=== PATIENT | female | born 1945 | race Caucasian/White ===

== ENCOUNTER → 2017-02-14 | Outpatient (CLI) | payer MEDICARE | LOC: MC.RAD 08:56 | DX: Z12.31 Encounter for screening mammogram for malignant neoplasm of breast (principal) ==

== ENCOUNTER → 2018-04-10 | Outpatient (CLI) | payer MEDICARE | LOC: MC.RAD 08:40 | DX: Z12.31 Encounter for screening mammogram for malignant neoplasm of breast (principal) ==

== ENCOUNTER → 2019-05-04 | Outpatient (CLI) | payer MEDICARE | LOC: MC.RAD 07:28 | DX: Z12.31 Encounter for screening mammogram for malignant neoplasm of breast (principal) ==

== ENCOUNTER → 2020-05-06 | Outpatient (CLI) | payer MEDICARE | LOC: MC.RAD 08:30 | DX: Z12.31 Encounter for screening mammogram for malignant neoplasm of breast (principal) ==

== ENCOUNTER → 2021-06-13 | Outpatient (CLI) | payer MEDICARE | LOC: MC.RAD 13:39 | DX: Z12.31 Encounter for screening mammogram for malignant neoplasm of breast (principal) ==

== ENCOUNTER 2022-09-11 05:23 | Day surgery (SDC) | payer MEDICARE ==
[~2022-09-11] VITALS: Ht 157.5 cm; Wt 74.5 kg
[2022-09-11] MEDS ORDERED: LIPITOR20 MG PO (05:58)
[2022-09-11] MEDS ORDERED: COZAAR100 MG PO (05:58)
[2022-09-11] MEDS ORDERED: KERENDIA10 MG PO (05:59)
[2022-09-11] MEDS ORDERED: PRILOSEC 20MG20 MG PO (05:59)
[2022-09-11 06:28] VITALS: BP 161/70; PULSE 84; TEMP 97.5
[2022-09-11 07:52] VITALS: BP 133/61; PULSE 77; TEMP 97
[2022-09-11 08:07] VITALS: BP 150/75; PULSE 84
[2022-09-11 08:22] VITALS: BP 168/86; PULSE 76
[2022-09-11 08:37] VITALS: BP 158/84; PULSE 70
[2022-09-11 08:52] VITALS: BP 138/70; PULSE 76
--- NOTE | 2022-09-11 09:15 | NUR ---
0752 RETURNS TO ROOM 3 PER CART. AWAKE, ALERT. RESP UNLABORED. HOB [id number] DEGREES. VITAL SIGNS OBTAINED. ROSAS WRAPPED DRESSING LEFT UPPER EXTREMITY CLEAN DRY AND INTACT. FINGERS LEFT HAND WARM/PINK WITH EXCELLENT CAP REFILL. UNABLE TO MOVE FINGERS. DENIES PAIN. SLING ON. CALL LIGHT AT SIDE. SON IN ROOM. 0805 TOLERATES PO SODA WITHOUT NAUSEA 0820 VISITS WITH SON. DENIES PAIN. 0845 DISCHARGE INSTRUCTIONS THOROUGHLY REVIEWE. PATIENT AND SON REPORT UNDERSTANDING. COPY OF INSTRUCTIONS, PHYSICAL THERAPY PRESCRIPTION AND UPPER EXTREMITY BLOCK CARE INCLUDED. 0900 SITS OON EDGE OF BED, THEN STANDS AT BEDSIDE. DRESSES WITH ASSISTANCE OF THIS NURSE
== END 2022-09-11 09:18 | disposition home or self-care (01) ==
LOC: SDCO 05:23
DX: G56.22 Lesion of ulnar nerve, left upper limb (principal); G56.02 Carpal tunnel syndrome, left upper limb; I10 Essential (primary) hypertension; K21.9 Gastro-esophageal reflux disease without esophagitis; E11.22 Type 2 diabetes mellitus with diabetic chronic kidney disease; I12.9 Hypertensive chronic kidney disease with stage 1 through stage 4 chronic kidney disease, or unspecified chronic kidney disease; N18.9 Chronic kidney disease, unspecified
CPT/HCPCS: J0690; J1100; J2250; J2704; J2795; J7030